=== PATIENT | female | born 1985 | race Caucasian/White ===

== ENCOUNTER 2024-10-13 01:18 | Emergency (ER) | payer SELFPAY ==
[~2024-10-13] VITALS: Ht 167.6 cm; Wt 97.5 kg
[2024-10-13] MEDS ORDERED: EPINEPHRINE (1:1000) 1 MG/ML AMPUL ONE (01:54)
[2024-10-13] MEDS ORDERED: predniSONE 20 MG TABLET ONE (01:54)
[2024-10-13] MEDS: ALBUTEROL FS 2.5 MG/3 ML VIAL.NEB CONTNEB ONE (01:58)
[2024-10-13] MEDS: IPRATROPIUM NEB FS 0.5 MG/2.5 ML AMPUL.NEB NEB ONE (01:58)
[2024-10-13] MEDS ORDERED: ALBUTEROL FS 2.5 MG/3 ML VIAL.NEB ONE (01:59)
[2024-10-13] MEDS ORDERED: IPRATROPIUM NEB FS 0.5 MG/2.5 ML AMPUL.NEB ONE (01:59)
[2024-10-13 02:00] VITALS: O2SAT 96
[2024-10-13] MEDS: EPINEPHRINE (1:1000) 1 MG/ML AMPUL SUBCUT ONE (02:02)
[2024-10-13] MEDS: predniSONE 20 MG TABLET PO ONE (02:02)
[2024-10-13 02:15] VITALS: O2SAT 99
[2024-10-13 02:16] VITALS: O2SAT 99
[2024-10-13 02:31] VITALS: O2SAT 96
[2024-10-13] MEDS ORDERED: PRED50TA PO (02:36)
[2024-10-13] MEDS ORDERED: ALBU8.5H8 INH (02:36)
[2024-10-13 02:44] VITALS: BP 155/94; TEMP 98.1; O2SAT 96
== END 2024-10-13 02:44 | disposition home or self-care (01) ==
LOC: ER 01:22
DX: J45.901 Unspecified asthma with (acute) exacerbation (principal); Z88.6 Allergy status to analgesic agent
CPT/HCPCS: 99285; 96372; 94640; J0171; J7512